=== PATIENT | female | born 1980 | race Caucasian/White ===

== ENCOUNTER 2019-04-19 21:34 | Emergency (ER) | payer BC, OTHER ==
[~2019-04-19] VITALS: Ht 170.2 cm; Wt 70.3 kg
[~2019-04-19 21:34] MED LIST: CELEXA20 MG PO; DOXYCYCLINE 10100 MG PO; IBUPROFEN 400400 M2 PO; OXYCODONE HCL 55 MG PO; PRILOSEC OTC20 MG PO; PROBIOTIC1 EAC1 PO; VEETIDS 500500 MG PO
[2019-04-19] MEDS ORDERED: SERTRALINE HCL100 MG PO (21:53)
[2019-04-19] MEDS ORDERED: ZOVIRAX800 MG PO (22:02)
[2019-04-19] MEDS ORDERED: IBUPROFEN 800800 M1 PO (22:02)
[2019-04-19] MEDS ORDERED: PREDNISONE 10 M10 M1 PO (22:02)
[2019-04-19] MEDS ORDERED: NORCO 5-325 TA1 EAC1 PO (22:02)
[2019-04-19 22:15] VITALS: BP 125/80
== END 2019-04-19 22:17 | disposition home or self-care (01) ==
LOC: M.ERS 21:34
DX: B02.9 Zoster without complications (principal); F41.9 Anxiety disorder, unspecified; Z90.89 Acquired absence of other organs

== ENCOUNTER 2019-05-10 16:51 | Emergency (ER) | payer BC, OTHER ==
[~2019-05-10] VITALS: Ht 170.2 cm; Wt 72.6 kg
[~2019-05-10 16:51] MED LIST changes: +IBUPROFEN 800800 M1 PO; +NORCO 5-325 TA1 EAC1 PO; +PREDNISONE 10 M10 M1 PO; +SERTRALINE HCL100 MG PO; +ZOVIRAX800 MG PO
[2019-05-10 19:02] VITALS: BP 140/77
== END 2019-05-10 19:02 | disposition home or self-care (01) ==
LOC: M.ERS 16:51
DX: M25.561 Pain in right knee (principal); M54.31 Sciatica, right side; M25.571 Pain in right ankle and joints of right foot; F41.9 Anxiety disorder, unspecified; Z98.890 Other specified postprocedural states